=== PATIENT | female | born 1990 | race African-American/Black ===

== ENCOUNTER 2020-09-05 12:07 | Emergency (ER) | payer OTHER ==
[~2020-09-05] VITALS: Ht 167.6 cm; Wt 61.2 kg
[2020-09-05 12:22] VITALS: BP 124/70
--- NOTE | 2020-09-05 12:24 | NUR ---
came to er complaints that she has ear infection seen at urgent care clinic today given steriod injection and rx . but patient is here for 2nd opinion
--- NOTE | 2020-09-05 12:43 | Emergency Room Report ---
History of Present Illness General Chief Complaint: Earache Source: Patient Present Illness HPI Patient presents after being evaluated at urgent care. The main reason that she wants to be seen is because now she has some bloody seepage from her left ear. She was referred prescribed Ciprodex. She states that in the past she has had allergies to Cortisporin (initially as stated to hydrocortisone). She denies fevers and chills. He has decreased hearing. She does complain about pain in her ears but not limited touched externally. She is using Ciprodex for 1day. She was prescribed Augmentin recently. She says her throat is been itchy. The patient has had multiple ear infections in the past. The patient denies exposure to Covid positive contacts. No chest pain, cough, palpitations, nausea, vomiting, diarrhea, dysuria, abdominal pain, shortness of breath, joint pain, rashes, depression, anxiety, visual changes, dizziness, headache. Last menstruation was normal and she does not believe she is at this time. Allergies: Coded Allergies: No Known Allergies (Unverified , 11/08/13) COVID-19 Screening Contact w/high risk pt: No Experienced COVID-19 symptoms?: No COVID-19 Testing performed [address]: No Patient History Past Medical History: see triage record Social History: Denies: smoking Social History Narrative Student Last Menstrual Period: 09/05/20 Now: No Reviewed Nursing Documentation: PMH: Agreed; PSxH: Agreed Nursing Documentation-PMH Past Medical History: No Stated History Review of Systems All Other Systems: negative except mentioned in HPI Physical Exam Vital Signs Date Time Temp Pulse Resp B/P (MAP) Pulse Ox O2 Delivery O2 Flow Rate FiO2 09/05/20 12:15 98.6 76 18 124/70 (88) 98 Room Air Sp02 EP Interpretation: reviewed, normal General Appearance: well appearing, no apparent distress, GCS 15 Head: normocephalic Eyes: bilateral eye normal inspection, bilateral eye PERRL, bilateral eye EOMI ENT: hearing grossly normal - Reported slightly less left, normal pharynx, no angioedema, moist mucus membranes, other - Right TM normal however there is some moisture of the ear canal without erythema or pinna tenderness. Left TM with small perforation and opacity with minimal erythema. The canal is somewhat edematous but not erythematous. She has no pinna tenderness. No mastoid tenderness bilaterally Neck: full range of motion, supple Respiratory: lungs clear, normal breath sounds Cardiovascular #1: regular rate, rhythm Cardiovascular #2: 2+ radial (R) Gastrointestinal: normal inspection Musculoskeletal: gait/station normal Neurologic: alert, grossly normal Psychiatric: mood/affect normal Skin: normal color, no rash, warm/dry Medical Decision Making Diagnostic Impression: Primary Impression: Otitis media Qualified Codes: H66.015 - Acute suppurative otitis media with spontaneous rupture of ear drum, recurrent, left ear ER Course The patient presents complaining about bilateral ear discomfort and recent bloody drainage from her left ear. She has been taking Ciprodex and was recently prescribed Augmentin. Differential includes otitis externa, otitis media, perforation left ear drum, upper respiratory infection. Suspicion for Covid is low. Based on her physical exam she has otitis media on the left-hand side with a small perforation. Questionable whether she has any otitis or trip externa at this time although she states she has had this problem in the past. An ear wick is placed on the left side. Ciprodex is instilled. Patient is given a dose of Sudafed. Discussed findings with patient and treatment plan. Patient is stable for out patient observation and treatment. Told the patient she needs to follow-up with your nose and throat specialist. Last Vital Signs Date Time Temp Pulse Resp B/P (MAP) Pulse Ox O2 Delivery O2 Flow Rate FiO2 09/05/20 13:20 98.6 18 124/70 98 Room Air 09/05/20 12:15 76 Status: improved Disposition: HOME, SELF-CARE Condition: Improved Scripts Acetaminophen With Codeine (T#3) (TYLENOL #3 TAB*) Y Tab 1 TAB ORAL Q8H PRN for For Pain, #6 TAB Prov: Orlando Wilde MD 09/05/20 Chlorpheniramine Maleate (CHLOR-TRIMETON) 4 Mg Tablet 4 MG PO Q6HR PRN for congestion in ears or pain, #14 TAB Prov: Orlando Wilde MD 09/05/20 Orlando Wilde MD Sep 05, 2020 12:43
[2020-09-05] MEDS ORDERED: Pseudoephedrine 30mg tab ORAL ONE (12:45)
[2020-09-05] MEDS ORDERED: ACETAMINOPHEN-1 EAC1 ORAL (12:46)
[2020-09-05] MEDS ORDERED: CHLOR-TRIMETON4 MG PO (12:46)
[2020-09-05 13:20] VITALS: BP 124/70
--- NOTE | 2020-09-05 13:22 | NUR ---
discharged home with instruction and rx follow up with pmd
== END 2020-09-05 13:22 | disposition home or self-care (01) ==
LOC: EMR 12:43
DX: H66.015 Acute suppurative otitis media with spontaneous rupture of ear drum, recurrent, left ear (principal)
CPT/HCPCS: 99282